=== PATIENT | male | born 1945 | race Caucasian/White ===

== ENCOUNTER 2017-01-28 13:44 | Inpatient (IN) | payer MEDICARE ==
[2017-01-28] MEDS ORDERED: MIRALAX17 GM PO (16:17)
[2017-01-28] MEDS ORDERED: ZOLOFT100 MG PO (16:18)
[2017-01-28] MEDS ORDERED: SEROQUEL50 MG PO (16:18)
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
[2017-01-28 17:57] VITALS: BP 129/88; BMI 23.7
[2017-01-28 22:45] VITALS: BP 130/81
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
[2017-01-29 07:00] LABS: BASOPHILS 0.1 % (0-2); HEMOGLOBIN 16.1 g/dL (13.5-17.5); IMMATURE GRANULOCYTES 0.1 % (0-5); LYMPHOCYTES 18.6 % (15-50); MCH 32.9 pg (26.0-34.0); MCV 94.1 fL (80.0-100.0); MEAN PLATELET VOLUME 9.5 fL (7.4-10.4); MONOCYTES 5.5 % (2-11); NEUTROPHILS 74.7 % (40-80); PLATELET COUNT 154 10x3/uL (130-400); RBC 4.89 10x6/uL (4.20-6.10); RDW 13.6 % (11.5-14.5); WBC 7.3 10x3/uL (4.8-10.8)
[2017-01-29 07:26] LABS: HEMOGLOBIN A1C 5.5 % (4.8-6.0)
[2017-01-29 07:31] LABS: ALBUMIN 3.1 g/dL (3.4-5.0); ALKALINE PHOSPHATASE 41 U/L (46-116); ALT (SGPT) 16 U/L (10-68); BILIRUBIN - TOTAL 0.45 mg/dL (0.2-1.3); CALC OSMOLALITY 283 mosm/kg (275-300); CALCIUM 8.8 mg/dL (8.5-10.1); CARBON DIOXIDE 28.5 mmol/L (21.0-32.0); CHLORIDE - SERUM 107 mmol/L (98-107); CHOL - HDL RATIO 4.9 ratio (2.3-4.9); CHOLESTEROL, TOTAL 224 mg/dL (0-200); CREATININE - SERUM 0.9 mg/dL (0.6-1.3); GLUCOSE 104 mg/dL (74-106); HDL CHOLESTEROL 46 mg/dL (32-96); LDL CHOLESTEROL 143 mg/dL (0-100); LDL-HDL RATIO 3.1 ratio (1.5-3.5); POTASSIUM - SERUM 4.2 mmol/L (3.5-5.1); SODIUM 143 mmol/L (136-145); THYROID STIMULATING HORMONE 3.01 uIU/mL (0.36-3.74); TRIGLYCERIDE 176 mg/dL (30-200); UREA NITROGEN 11 mg/dL (7-18); eGFR NON AFRICAN AMERICAN 88 mL/min (90-120)
[2017-01-29 08:08] VITALS: BMI 23.7
--- NOTE | 2017-01-29 08:42 | NUR ---
PATIENT AWAKENS CONFUSED, HE WALKED OUT OF HIS ROOM WITH A T-SHIRT AND BRIEF ON AND ONE SHOE, STAFF SPOKE SOFTLY AND APPROACHED HIM IN A CALM MANNER AND REDIRECTED HIM TO HIS ROOM AND ASSISTED HIM TO USE THE TOILET AND DRESS HIM, BUT THEN PATIENT TOOK HIS SHOES OFF AGAIN, STAFF ASSISTED HIM WITH PUTTING HIS SHOES BACK ON, PATIENT IS PACING AND EXIT SEEKING, STAFF ATTEMPTING TO EXPLAIN WHY HE IS HERE AND WHERE HE IS, PATIENT IS NOT COMPREHENDING. HE IS ANXIOUS AND PACING, STAFF ATTEMPTING TO GET HIM INVOLVED IN A CONVERSATION AND TRYING ENCOURAGE HIM TO EAT BREAKFAST. PATIENT IS NOT REDIRECTING GETTING MORE ANXIOUS. ATIVAN 0.5 MG IM IN RIGHT HIP GIVEN, WILL MONITOR.
[2017-01-29 08:43] VITALS: BMI 23.6
[2017-01-29 08:57] VITALS: BP 130/83
--- NOTE | 2017-01-29 16:11 | NUR ---
PATIENT GETTING IRRITABLE WITH STAFF BECAUSE HE WANTS TO LEAVE AND STAFF ARE REDIRECTING, BUT HE DOES NOT UNDERSTAND. HE IS NOT LISTENING. NURSE MADE HIM A MILK SHAKE AND THIS HAS HELPED FOR THE SHORT TERM, BUT THEN PATIENT BECAME IRRITABLE, TRYING THE DOORS, PATIENT DOES NOT UNDERSTAND, HE DOES ASK FOR HIS ALSO. ATIVAN 0.5 MG GIVEN, SEE MAR.
--- NOTE | 2017-01-29 17:00 | NUR ---
PATIENT HAS NOT CALMED DOWN AT ALL FROM THE ATIVAN INJECTION, HE IS TRYING TO WALK AND HE IS MORE UNSTEADY, STAFF ARE ATTEMPTING TO GIVE HIM SNACKS AND IT HELPS FOR LONG HE IS EATING, BUT THEN HE WANTS TO EXIT SEEK.
--- NOTE | 2017-01-29 18:25 | NUR ---
PATIENT IS SITTING AT THE TABLE WITH TWO STAFF BY HIS SIDE AND HE HAS A CHAIR ALARM ON FOR ADDITIONAL SECURITY TO PREVENT FALLS.
[2017-01-29 18:40] LABS: APPEARANCE CLEAR (CLEAR); BILIRUBIN NEGATIVE (NEGATIVE); COLOR YELLOW (YELLOW); GLUCOSE NEGATIVE (NEGATIVE); KETONE NEGATIVE (NEGATIVE); NITRITE NEGATIVE (NEGATIVE); PROTEIN NEGATIVE (NEGATIVE); SPECIFIC GRAVITY 1.005 (1.005-1.020); UROBILINOGEN NORMAL (NORMAL)
--- NOTE | 2017-01-29 19:27 | PSY ---
PATIENT NAME:CHAD LAZARO MEDICAL RECORD: [id number] : 45 LOCATION:[facility] ADMISSION DATE: 01/28/17 ACCOUNT: [id number] PSYCHIATRIC EVALUATION DATE OF EVALUATION: 01/29/17 IDENTIFYING DATA: This is the first correction admission for this 71-year-old white male. CHIEF COMPLAINT: "I don't know." HISTORY OF PRESENT ILLNESS: This patient was referred to us by the [facility]. He had become increasingly combative and even assaultive toward staff there and he had been attempting to elope and required very frequent redirection. He has a preexisting diagnosis of Alzheimer dementia and has been followed by a behavioral neurologist, Dr. Hewitt, for some time. The original diagnosis was made in approximately 2005. The patient has shown deterioration since that time. He was eventually placed in the [facility] and referred here because of behavioral problems. Subsequent to admission, the patient did show aggressiveness and extreme confusion. He became belligerent with staff and repeatedly attempted to escape via one of the doors on the unit. He did receive p.r.n. Ativan to control agitation with fair results. PAST MEDICAL HISTORY: Essentially unremarkable. MEDICATIONS: The only routine medication the patient had been taking at the time of admission was Seroquel 50 mg h.s. and MiraLax. FAMILY HISTORY: Noncontributory. SOCIAL HISTORY: The patient is originally from [place]. 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 He is . His lives in [place]. No substance abuse issues as far as can be determined. ALLERGIES: None listed. MENTAL STATUS: On exam, the patient is seated on the sofa in the day room. Initially, he does not acknowledge the presence of the examiner, but within a few minutes, does orient towards him. Speech is extremely terse and there is a distinct paucity of information. Affect during the interview remains blank for the most part. Mood is best described as euthymic. Speech is monotonous in quality. Content of thought is negative for overt psychosis. The patient is oriented only to person. He has global memory impairment. DIAGNOSTIC IMPRESSION: AXIS I: Alzheimer dementia with behavioral disturbance. AXIS II: Deferred. AXIS III: No diagnosis. AXIS IV: Severe. AXIS V: 35. PLAN: 1. The patient will be started on routine doses of Namenda 5 mg b.i.d., Geodon 20 mg b.i.d. for control of agitation. 2. Daily supportive therapy. 3. We will coordinate with referring facility and family regarding aftercare plans. TRANSINT:[id number] Voice Confirmation ID: [id number] DOCUMENT ID: [id number] FANTASMA MURRAY III, MD at 1927 CC: [id number] DICTATION DATE: 01/29/17 1156 CONSTRUCTION CODE ADMINISTRATOR: 01/29/17 1210 ADM IN [facility] [address] [place] [address]
--- NOTE | 2017-01-30 02:32 | NUR ---
B) patient is alert and oriented to self, one on one with staff to prevent falls, patient is unsteady and trying to walk, restless and anxious, I) Administered scheduled, medications, monitored for falls and safety R) Medications compliant, difficult and does not redirect P) Continue plan of care.
[2017-01-30 06:13] LABS: RAPID PLASMA REAGIN Non Reactive (Non Reactive)
[2017-01-30 07:24] LABS: FOLATE (FOLIC ACID) - SERUM 13.9 ng/mL (>3.0)
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
[2017-01-30 11:05] VITALS: BP 142/85
--- NOTE | 2017-01-30 11:40 | NUR ---
B) HAD BEEN ABLE TO REDIRECT PATIENT ALL AM, BUT THIS NURSE LEFT TO GO GET MEDICATIONS AND WHEN I GOT BACK HE WAS SCREAMING, YELLING, DEMANDING TO LEAVE AND DEMANDING TO CALL HIS AND DEMANDING SHE COME PICK HIM UP. DID ATTEMPT TO GET PATIENT A PO ATIVAN, HAD CRUSHED IT UP AND POURED IT DOWN THE SINK. CALLED A FAN WERNER PATIENT IS HITTING THE BACK DOOR WITH HIS FIST AND COMING AT THIS NURSE TO FOLLOW HER OUT OF THE DOOR TO GO GET MEDICATION TO ALLEVIATE HIS ANXIETY. HE KEEPS SCREAMING "THERE IS NOT A DAMN THING WRONG WITH ME" HE SAYS THIS ABOUT A HALF A DOZEN TIMES. METAL CRAFTS TEACHER IS THE ONLY ASSISTANCE WE RECEIVE AND HE TALKS TO THE PATIENT, BUT PATIENT IS NOT CALMING. PATIENT IS AMBULATORY, BUT HE IS UNSTEADY. I) IM GEODON 10 MG GIVEN IN RIGHT HIP. R) PATIENT IS COMPLIANT WITH AM MEDS, BUT HE REFUSED IM INJECTION OR MORE PILLS TO HELP CALM HIM. PATIENT SAT AT THE DINING ROOM TABLE FOR LUNCH AND BIACA GOT HIM A COLA AND HE CALMED FOR A FEW MINUTES. WILL MONITOR. P) CONTINUE POC.
--- NOTE | 2017-01-30 12:30 | NUR ---
PATIENT IS CALM THROUGH LUNCH, BUT THEN HE BEGINS TO RANT AND RAVE AND YELL "I WANT TO GO HOME, DAMN IT, I WANT MY " STAFF SAT BY PATIENT AND SPOKE SOFTLY WITH HIM THAT HE IS IN THE HOSPITAL AND THAT HIS IS AT HOME, BUT SHE CALLED AND SAID SHE LOVES YOU VERY MUCH" THIS CALMED HIM FOR A SHORT TIME. HE BECOMES RESTLESS AND TRIES TO LEAVE AND GETS AGITATED, STAFF GETTING HIM DRINKS AND SNACKS, TRIED TO PUT SOFT CLASSICAL MUSIC ON NEXT TO HIM, BUT THIS HAS NOT HELPED.
--- NOTE | 2017-01-30 14:37 | NUR ---
PATIENT IS NOT SETTLING, HE IS AGITATED, HE IS GIVEN SNACKS AND THEN HE LEAVES CRUMBS ON THE TABLE ABD HE IS UPSET THAT THE TABLE IS MESSY. HE IS FIDGETING WITH THE TABLE, THEN THE NURSE CLEANED THE TABLE OFF, ASSISTED PATIENT TO THE BATHROOM, PATIENT REMAINS ANXIOUS. ATIVAN 0.5 MG PO GIVEN IN A STRAWBERRY SHAKE. WILL MONITOR.
--- NOTE | 2017-01-30 15:10 | NUR ---
SAT BY PATIENT AND EXPLAINED TO HIM THAT I TALKED TO HIS AND THAT SHE SAID FOR ME TO TELL HIM SHE LOVES HIM VERY MUCH. SAT WITH HIM AND TALKED ABOUT WHAT HE DID FOR A LIVING AND WHERE HE HAS TRAVELLED. SAT WITH HIM AND TALKED WITH HIM FOR THIRTY MINUTES AND THIS DID HELP PATIENT TO CALM DOWN AND NOT YELL OR CURSE OR EXIT SEEK.
--- NOTE | 2017-01-30 23:16 | NUR ---
B) Patient is alert and oriented to self, unaware of surroundings, wanting to go home, exitseeking, restless and anxious, I) Administered scheduled medications, PRN Ativan 0.5 mg IM given for anxiety, at 19:49, R) Medication compliant, resting quietly in bed now, P) Continue plan of care.
[2017-01-31 07:00] VITALS: BP 139/86
--- NOTE | 2017-01-31 08:50 | NUR ---
ATIVAN 0.5MG IM GIVEN FOR YELLING AT STAFF AND TRYING TO GET OUT OF RECLINER PER SELF.
--- NOTE | 2017-01-31 09:08 | NUR ---
GEODON 10MG IM GIVEN FOR CUSSING AND YELLING AT STAFF.AGGRESSIVE,HITTING AT STAFF .SECURITY HERE PER NURSE REQUEST.
--- NOTE | 2017-01-31 17:59 | NUR ---
CONFUSED AND DISORIENTED.DEMANDING AND AGGRESSIVE AT TIMES.IS COMPLIANT WITH MEDS.WILL CONTINUE WITH PLAN OF CARE,MONITOR FOR CHANGES AND SAFETY.
--- NOTE | 2017-01-31 20:44 | NUR ---
RECEIVED IN BEDROOM. LAYING IN BED WITH EYES OPEN. REFUSED PM VITALS SIGNS. COOPERATIVE WITH ASSESSMENT. NO SIGNS OF AGGRESSION AT THIS TIME. REDIRECT AND REORIENT NEEDED. ENCOURAGE TO EXPRESS NEEDS. RESTING IN BED EYES CLOSED AT THIS TIME. CONTINUE PLAN OF CARE.
[2017-02-01 06:07] LABS: VITAMIN D 25 HYDROXY 18.9 ng/mL (30.0-100.0)
--- NOTE | 2017-02-01 07:30 | NUR ---
AWAKE AND CONFUSED AT NURSES DESK. HE STARTED YELLING OUT LOUDLY, AND CURSING AT STAFF. COOPERATIVE WITH ASSESSMENT. ADMINISTERED PRESCRIBED MEDICATIONS. COMPLIANT WITH TAKING MEDICATIONS. CONTINUE PLAN OF CARE.
--- NOTE | 2017-02-01 08:01 | NUR ---
PRN ATIVAN 0.5 MG PO GIVEN FOR AGITATION, YELLING AT STAFF, AND BANGING ON NURSES STATION COUNTER.
--- NOTE | 2017-02-01 10:00 | NUR ---
CALLED X 2 THIS AM, GAVE HER AN UPDATE ABOUT HER 'S BEHAVIOR, AND MEDICATIONS REVIEWED FROM THIS WEEK-END AND THIS MORNING TOO. SHE HAS MANY CONCERNS AND WANTS TO TALK WITH DR. MURRAY ABOUT HER .
[2017-02-01 20:09] VITALS: BP 126/74
--- NOTE | 2017-02-01 23:22 | NUR ---
RECEIVED IN BEDROOM. RESTING IN BED WITH EYES CLOSED. RESPONDS TO VOICE. CALM AND COOPERATIVE WITH CARE AND ASSESSMENT. NO SIGNS OF AGGRESSION. ENCOURAGE TO EXPRESS NEEDS. REDIRECT AND REORIENT NEEDED. RESTING IN BED WTIH EYES CLOSED AT THIS TIME. CONTINUE PLAN OF CARE.
--- NOTE | 2017-02-02 08:05 | NUR ---
PRN AT ATIVAN 1 MG IM IN RIGHT GLUTEAL MAURICIO FOR ANXIETY AN AGGITATION.
[2017-02-02 09:24] VITALS: BP 103/69
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
--- NOTE | 2017-02-02 13:12 | NUR ---
NUTRITION F/U CHART REVIEWED. PT TOLERATING REG DIET WITH MIGHTY SHAKES. < 50% INTAKE RECENT MEALS. LAST BM RECORDED 01/29/17. NOTE PT RECEIVING MIRALAX DAILY. WILL CONTINUE TO PROVIDE DIET, SUPPLEMENTS. MONITOR PO INTAKE. RD FOLLOWING
--- NOTE | 2017-02-02 17:15 | NUR ---
UPDATED ON PTS CONDITION AND BEHAVIOR FOR TODAY. EXPLAINED THAT HIS RED EAR WAS DUE TO HIM HITTING SELF ON SIDE OF HEAD AND ON EAR WHEN FRUSTRATED ABOUT SOMETHING OR UNABLE TO FIGURE OUT A WORD. HAD CONCERN ABOUT PT'S LIP BEING SWOLLEN. LIP WAS ASSESSED AND NO SWELLING NOTED. THANKED STAFF FOR THEIR CARE AND FOR TALKING TO HER.
[2017-02-02 20:52] VITALS: BP 142/70
--- NOTE | 2017-02-02 23:43 | NUR ---
RECEIVED IN ROOM. SITTING ON BED. CONFUSED. ATTEMPTS TO STAND WITHOUT ASSISTANCE. ALARM SOUNDING. CALM AND COOPERATIVE WITH CARE AND ASSESSMENT. NO SIGNS OF AGGRESSION. ENCOURAGE TO EXPRESS NEEDS. REDIRECT AND REORIENT NEEDED. RESTING IN BED WTIH EYES CLOSED AT THIS TIME. CONTINUE PLAN OF CARE.
--- NOTE | 2017-02-03 07:43 | NUR ---
GEODON 10 MG IM GIVEN IN LEFT GLUTEAL MAURICIO PRN FOR YELLING, HOOLERING AND AGITATION AT NURSE STATION.
[2017-02-03 09:00] VITALS: BP 126/77
--- NOTE | 2017-02-03 09:33 | NUR ---
LATE ENTRY FROM 02/02 FAMILY VISITATION SW SPOKE WITH PT'S , SALOMON, TO DISCUSS DISEASE PROGRESSION, MEDICATION MANANGEMENT, PT'S BEHAVIORS ON THE UNIT, AND DISCHARGE PLANS. PT WILL BE RETURNING TO THE [facility]. PT'S STATED SHE WAS PLEASED WITH SERVICES AND TAHNKED SW FOR TAKING THE TIME TO EXPLAIN AND ANSWER QUESTIONS. PT'S VERBALIZED UNDERSTANDING OF PT'S CONDITION AND DISCUSSION.
--- NOTE | 2017-02-03 10:34 | PN ---
PATIENT:CHAD LAZARO MEDICAL RECORD: [id number] LOCATION:[facility] ADMISSION DATE: 01/28/17 PROGRESS NOTE DATE OF SERVICE: 02/02/2017 SUBJECTIVE: The patient asked the examiner for a job. OBJECTIVE: The patient has continued to have episodes of agitation. He required p.r.n. medication this morning when he became very restless and intrusive. He is sleeping fairly well. His restlessness appears to interfere with his eating, however. Staff note that the patient is having apparent visual hallucinations. He has been noted to be picking at unseen objects and speaking to unseen people. Extensive conversation was held with the patient's by telephone. Current course of treatment and prognosis were discussed. On exam, mood is somewhat anxious and perplexed. Affect is shallow. Speech shows frequent word finding pauses and is tangential. Content of thought exhibits delusional ideation due to his profound sensorium deficits. Sensorium itself is unchanged. ASSESSMENT: No change in diagnosis. PLAN: 1. Advance Geodon to 40 mg twice a day. 2. Continue all other current medications. 3. Continue supportive therapy. TRANSINT:[id number] Voice Confirmation ID: [id number] DOCUMENT ID: [id number] FANTASMA MURRAY III, MD at 1034 CC: [id number] DICTATION DATE: 02/02/17 1144 INTERNATIONAL MARKETING INTERN: 02/02/17 1202 ADM IN [facility] [address] [place] [address]
--- NOTE | 2017-02-03 10:45 | NUR ---
AWAKE AND ALERT TO SELF ONLY. SITTING AT TABLE IN DAYROOM. CALM AND COOPERATIVE WITH ASSESSMENT. ADMINISTERED PRESCRIBED MEDICATIONS. VSS, MONITOR FOR FALLS. COMPLIANT WITH TAKING MEDICATIONS IN ICE CREAM. CONTINUE WITH PLAN OF CARE.
--- NOTE | 2017-02-03 15:08 | NUR ---
PRN ATIVAN 1 MG IM GIVEN IN RUQ OF BUTTOCK FOR ANXIETY/ AGITATION. HE WAS SLAPPING TABLE AND YELLING OUT LOUDLY.
--- NOTE | 2017-02-03 18:35 | NUR ---
CALLED FOR UPDATE ON PATIENT, UPSET THAT HE SOUNDS DRUGED UP WHEN SHE CALLED TO TALK TO HIM. EXPLAINED THAT HE WAS GIVEN A PRN THIS AFTERNOON OF ATIVAN IM FOR BEHAVIOR PROBLEMS.
[2017-02-03 20:22] VITALS: BP 140/80
--- NOTE | 2017-02-04 02:31 | NUR ---
B) Patient is alert and oriented to name, very confused and restless, constant one on one with staff, I) Administered scheduled medications, PRN Ativan 1 mg IM given at 22:08 for anxiety R) Medication compliant, difficult to redirect, cannot understand instructions, P) Continue plan of care/
[2017-02-04 08:31] VITALS: BP 133/62
--- NOTE | 2017-02-04 09:04 | PN ---
PATIENT:CHAD LAZARO MEDICAL RECORD: [id number] LOCATION:[facility] ADMISSION DATE: 01/28/17 PROGRESS NOTE DATE OF SERVICE: 02/03/2017 SUBJECTIVE: No new complaint noted. OBJECTIVE: The patient continues to have episodic agitation and requires redirection. He did require p.r.n. earlier this morning. On exam, mood is somewhat irritable. Affect is brittle and shallow. Speech is tangential and nonfocused. Content of thought is negative for overt psychosis. Sensorium shows no change. ASSESSMENT: No change in diagnosis. PLAN: 1. Continue current treatment plan. 2. Continue supportive therapy. TRANSINT:[id number] Voice Confirmation ID: [id number] DOCUMENT ID: [id number] FANTASMA MURRAY III, MD at 0904 CC: [id number] DICTATION DATE: 02/03/17 1130 CIGAR BANDER: 02/03/17 1209 ADM IN [place] [id number] [place] [id number]
--- NOTE | 2017-02-04 13:00 | NUR ---
B) PATIENT IS ORIENTED X1, HE IS CALM TODAY, HE HAS NOT SHOWN ANY SIGNS OF AGGRESSION. HE CAN AMBULATE WITH STAFF ASSIST. I) PROVIDE PRESCRIBED MEDS. R) PATIENT IS COMPLIANT WITH MEDS CRUSHED IN ICE CREAM. P) CONT. POC.
--- NOTE | 2017-02-05 02:16 | NUR ---
B) Patient is alert and oriented to self, confused and unaware of surroundings, combative with care at times I) Administered scheduled medications, monitored for falls and for safety, redirected as needed, R) Medication compliant, medications crushed in apple sauce, resting now quietly in bed, P) continue plan of care.
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
--- NOTE | 2017-02-05 07:01 | NUR ---
PATIENT AGITATED AND FIGHTING AND NOT REDIRECTING WITH STAFF, ATIVAN 0.5 MG IM IN HIP, TOLERATED WELL.
--- NOTE | 2017-02-05 07:30 | NUR ---
PATIENT IS CALMER NOW AND HE IS JOKING WITH THE STAFF SAYING "I WANT SOME MARIANNA" PATIENT IS STILL TALKING, BUT NOW HE IS NOT FIGHTING OR KICKING STAFF.
[2017-02-05 10:00] VITALS: BP 118/87
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
--- NOTE | 2017-02-05 16:04 | NUR ---
SW MET WITH PT'S , SALOMON, TO DISCUSS RECENT MEDICATION, DISEASE PROGRESSION, AND DISCHARGE PLANNING. PT'S VERBALIZED UNDERSTANDING OF DISCUSSION.
--- NOTE | 2017-02-06 02:08 | NUR ---
B) Patient alerty and oriented to name, very confused and restless, difficult to redirect, I) Administered scheduled medications, PRN Ativan 1 mg IM given at 21:40 for anxiety, R) Medication compliant, resting quietly now in bed, P) Continue plan of care,
[2017-02-06 08:00] VITALS: BP 127/63
--- NOTE | 2017-02-06 11:00 | NUR ---
ALERT TO NAME ONLY. VERY CONFUSED, CALL FOR SALOMON FREQUENTLY. WHEN ASKED ABOUT HIS CHILDREN, HE SAYS HE HAS 4, BUT NOT SURE ABOUT BOYS OR GIRLS. SITTING AT TABLE IN DAYROOM, QUIETLY. ADMINISTERED MEDICATIONS CRUSHED IN MIGHTY SHAKE. COMPLIANT WITH TAKING MEDS. CONTINUE PLAN OD CARE.
--- NOTE | 2017-02-06 11:00 | PN ---
PATIENT:CHAD LAZARO MEDICAL RECORD: [id number] LOCATION:[facility] ADMISSION DATE: 01/28/17 PROGRESS NOTE DATE OF SERVICE: 02/05/2017 SUBJECTIVE: The patient's case was discussed with staff. He has no new complaint. OBJECTIVE: The patient is in good behavioral control, but very disorganized. He still is not eating very well. He has not been aggressive today. He did sleep well last night, but does not look over sedated at this point. ASSESSMENT: No change in diagnoses. PLAN: Current medicines and therapies have been reviewed and will be maintained. His long-term prognosis is guarded. Brief supportive and educational interventions were made. TRANSINT:[id number] Voice Confirmation ID: [id number] DOCUMENT ID: [id number] IWONA ATKINS MD at 1100 CC: [id number] DICTATION DATE: 02/05/17 1312 INSPECTOR AIR CARRIER: 02/05/17 1336 ADM IN [place] [address] [place] [address]
--- NOTE | 2017-02-07 03:24 | NUR ---
RECEIVED IN PATIENT ROOM. RESTING IN BED WTIH EYES OPEN. CALM AND COOPERATIVE WITH CARE AND ASSESSEMENT. NO SIGNS OF AGGRESSION. VERY CONFUSED. ATTEMPTS TO GET OUT OF BED WITHOUT ASSISTANCE. ALARM SOUNDING. ANXIOUS. YELLING. WAKING UP AND DISTURBING OTHER PATIENTS ON THE UNIT. UNABLE TO REDIRECT. REDIRECT AND REORIENT NEEDED. PRN ATIVAN 1 MG IM GIVEN FOR ANXIETY. RESTING IN BED WTIH EYES CLOSED AT THIS TIME. CONTINUE PLAN OF CARE.
[2017-02-07 08:00] VITALS: BP 127/75
--- NOTE | 2017-02-07 09:30 | NUR ---
PATIENT IS SITTING UP IN CHAIR AND EATING BREAKFAST. PATIENT IS AWAKE, ALERT, AND ORIENTED TO SELF ONLY. PATIENT IS CONFUSED TO PLACE AND TIME. PATIENT TOOK HIS SHEDULED MORNING MEDICATIONS WITHOUT ANY PROBLEMS NOTED. PATIENT CURSES LOUDLY OUT LOUD AT TIMES. WILL MONITOR PATIENT FOR SAFETY AND CONTINUE PLAN OF CARE.
[2017-02-07 19:30] VITALS: BP 110/72
--- NOTE | 2017-02-08 00:28 | NUR ---
RECEIVED IN ROOM. RESTING IN BED WITH EYES OPEN. RESTLESS. VERY CONFUSED. DELUSIONAL. YELLING OUT. ATTEMPTING TO GET OUT OF BED WITHOUT ASSISTANCE. ALARM SOUNDING. UNABLE TO REDIRECT AND REORIENT. PRN ATIVAN 1 MG IM GIVEN FOR INCREASING ANXIETY AND UNSAFE BEHAVIORS. RESTING IN BED WITH EYES CLOSED AT THIS TIME. CONTINUE PLAN OF CARE.
[2017-02-08 08:00] VITALS: BP 126/88
--- NOTE | 2017-02-08 10:19 | PN ---
PATIENT:CHAD LAZARO MEDICAL RECORD: [id number] LOCATION:[facility] ADMISSION DATE: 01/28/17 PROGRESS NOTE DATE OF SERVICE: 02/04/2017 SUBJECTIVE: No new complaint. OBJECTIVE: The patient remains extremely confused. He does require redirection from time to time. Agitation is reduced. He did require p.r.n. Ativan last night at 2200, but so far this morning has done fairly well. The patient is alert, but not agitated. On exam, mood is more or less euthymic. Affect is very constricted. Speech is quite terse. Content of thought is negative for clear cut psychosis. Sensorium unchanged. ASSESSMENT: No change in diagnosis. PLAN: 1. Continue monitoring for potential drowsiness related side effects of medication. 2. Continue current treatment plan and supportive therapy. TRANSINT:[id number] Voice Confirmation ID: [id number] DOCUMENT ID: [id number] FANTASMA MURRAY III, MD at 1019 CC: [id number] DICTATION DATE: 02/04/17 1009 STAVE SAW OPERATOR: 02/04/17 1151 ADM IN [facility] [address] [place] [address]
--- NOTE | 2017-02-08 13:37 | PN ---
PATIENT:CHAD LAZARO MEDICAL RECORD: [id number] LOCATION:[facility] ADMISSION DATE: 01/28/17 PROGRESS NOTE DATE OF SERVICE: 02/06/2017 SUBJECTIVE: The patient's case was discussed with staff. He has no new complaint. OBJECTIVE: The patient is in good behavioral control. He did require some p.r.n. Ativan last night. He is clearly impaired severely. His long-term prognosis is guarded. PLAN: Brief supportive and educational interventions were made. TRANSINT:[id number] Voice Confirmation ID: [id number] DOCUMENT ID: [id number] IWONA ATKINS MD at 1337 CC: [id number] DICTATION DATE: 02/06/17 1132 BOLOGNA MAKER: 02/06/17 1158 ADM IN [facility] [address] [place] [address]
--- NOTE | 2017-02-08 14:14 | NUR ---
ORIENTED TO PERSON ONLY. PT WAS CALM AND COOPERATIVE DURING ASSESSMENT BUT SHORTLY AFTER BECAME VERY AGITATED. YELLING AND CURSING AT OTHER PTS. HE WAS BANGING ON THE TABLE AND TRYING TO HIT OTHER PTS. STAFF INTERVENED AND HE CALMED DOWN. PT IS A 1:1 TO KEEP HIM FROM ATTACKING OTHER PTS. MEDICATIONS GIVEN ORDERED. FALL PRECAUTIONS MAINTAINED. CHANDAN ALARM IN PLACE AND AUDIBLE. WILL CONTINUE TO MONITOR AND CONTINUE WITH PLAN OF CARE. PT IS A FEEDER AT TIMES, AND STAFF GIVE MULTIPLE PROMPTS TO EAT.
[2017-02-08 21:18] VITALS: BP 126/80
--- NOTE | 2017-02-09 00:26 | NUR ---
RECEIVED IN PATIENT ROOM. RESTING IN BED WITH EYES OPEN. CALM AND COOPERATIVE WITH CARE AND ASSESSMENT. NO SIGNS OF AGGRESSION. ENCOURAGE TO EXPRESS NEEDS. REDIRECT AND REORIENT NEEDED. RESTING IN BED WTIH EYES CLOSED AT THIS TIME. CONTINUE PLAN OF CARE.
--- NOTE | 2017-02-09 05:37 | PN ---
PATIENT:CHAD LAZARO MEDICAL RECORD: [id number] LOCATION:[facility] ADMISSION DATE: 01/28/17 PROGRESS NOTE DATE OF SERVICE: 02/08/2017 SUBJECTIVE: No coherent complaint. OBJECTIVE: The patient has had some episodic agitation. He did require p.r.n. last night. He is not exhibiting excessive sedation. He is eating fairly well. However, does require frequent redirection because of intrusiveness. On exam, mood is euthymic. Affect is very blank. Speech is somewhat tangential. Content of thought is negative for overt psychosis. Sensorium shows no change. ASSESSMENT: No change in diagnosis. PLAN: 1. We will continue all current medications from now -- consider the addition of low dose Depakote in the future if the patient's behavior continues to be aggressive. 2. Continue supportive therapy. TRANSINT:[id number] Voice Confirmation ID: [id number] DOCUMENT ID: [id number] FANTASMA MURRAY III, MD at 0537 CC: [id number] DICTATION DATE: 02/08/17 1137 LABOR RELATIONS CONSULTANT: 02/08/17 1228 ADM IN [facility] [address] [place] [address]
--- NOTE | 2017-02-09 13:00 | NUR ---
Received this am, alert and oriented to name and place, calm and cooperative with care. Encourage patient to express needs. Redirect and reorient as need. Encourage group participation. Compliant with medications, has smiled and laughed with staff this am, pleasant with no aggression. Continue to monitor for any change in behavior, continue with plan of care.
--- NOTE | 2017-02-09 15:00 | NUR ---
Patient sitting in chair, yelling out Princess Sánchez. Redirected that Princess was not present.
--- NOTE | 2017-02-09 15:30 | NUR ---
Patient spouse has arrived, patient immediately started smiling and crying. Spouse concerned and questioned to why patient was crying, explained to her that patient has been yelling her name and did not start crying until he say her coming in to see him, she then questioned to if patient was still on his antidepression, medications reviewed and instructed. Verbalized concern regarding patient admission weight stating patinet weight 2-3 weeks ago was 155.8, patient consumed 100 percent of breakfast and 20 percent at lunch, patient weighed now at 151.6 pounds.
[2017-02-09 20:39] VITALS: BP 137/85
--- NOTE | 2017-02-10 03:06 | NUR ---
RECEIVED IN BEDROOM. VERY CONFUSED. YELLING OUT ATTEMPTING TO STAND WITHOUT ASSIST. INCREASING ANXIETY. PRN ATIVAN 1 MG IM GIVEN FOR ANXIETY. TRANSFERE TO HALLWAY IN RECLINER FOR ONE ON ONE CARE. CONTINUES TO YELL OUT. SEXUALLY IN APPROPRIATE WITH FEMALE STAFF. ATTEMPTED TO HIT AND KICK STAFF. VERBALLY ABUSIVE. PRN GEODON 10 MG IM GIVEN FOR INCREASING ANXIETY. CONTINUE ONE ON ONE CARE. RESTING WITH EYES CLOSED AT THIS TIME. CONTINUE PLAN OF CARE
--- NOTE | 2017-02-10 09:57 | NUR ---
NO AGGRESSION THIS MORNING. PT DID GET 2 PRNS ON AS400 PROGRAMMER ANALYST. COOPERATIVE WITH CARE. PT CONTINUES TO BE CONFUSED AND REQUIRES FREQUENT REDIRECTION WITH NO EVIDENCE OF RETAINING. MEDICATIONS GIVEN ORDERED. FALL PRECAUTIONS MAINTAINED. WILL CONTINUE TO MONITOR AND CONTINUE WITH PLAN OF CARE
--- NOTE | 2017-02-10 10:43 | PN ---
PATIENT:CHAD LAZARO MEDICAL RECORD: [id number] LOCATION:[facility] ADMISSION DATE: 01/28/17 PROGRESS NOTE DATE OF SERVICE: 02/09/2017 SUBJECTIVE: No new complaint. OBJECTIVE: Another telephone call was held with the patient's again to update her on current treatment plan and to give a thorough explanation of virtually all treatment decisions, particularly in regards to medication, also prognosis and possible discharge date were discussed with the patient's in great detail. The patient himself is doing much better. He fed himself this morning, he is smiling quite a bit and even joking occasionally with staff. On exam, mood is pleasant and euthymic. Affect is bland. Speech is somewhat terse. Content of thought is negative for overt psychosis. Sensorium is unchanged. ASSESSMENT: No change in diagnosis. PLAN: 1. Maintain all current medication. 2. If patient continues to maintain good behavioral improvement, we will consider discharge within a few days. TRANSINT:[id number] Voice Confirmation ID: [id number] DOCUMENT ID: [id number] FANTASMA MURRAY III, MD at 1043 CC: [id number] DICTATION DATE: 02/09/17 1236 MANUAL ARTS TEACHER: 02/09/17 1258 ADM IN [place] [facility] [id number] [place] [address]
[2017-02-10 11:09] VITALS: BP 118/51
--- NOTE | 2017-02-10 12:11 | NUR ---
LATE NOTE FROM 02/09 FAMILY VISITATION TIME. SW SPOKE WITH PT'S ABOUT PT HAVING A GOOD DAY AND BEING IN GOOD BEHAVIORAL CONTROL. PT'S , SALOMON, CONTINUED TO QUESTION SW AND RN ABOUT PT'S MEDICATION REGIMEN AND WONDERED WHY PT WAS NOT ON ZOLOFT. THIS WAS AFTER SHE HAD A PHONE CALL WITH THE MORNING OF 02/09/17 TO DISCUSS MEDICATION REGIMEN, PROGNOISIS, AND TREATMENT. PT'S WAS TOLD PT HAS TO HAVE THREE CONSISTANT DAYS OF GOOD BEHAVIORAL CONTROL BEFORE DISCHARGE. SHE ASKED FOR PT TO BE WEIGHED STATING PT LOOKS LIKE HE IS LOSING WEIGHT. STAFF GOT THE SCALE AND WEIGHED PT AND HE GAINED WEIGHT SINCE LAST WEIGH IN. SHE STATED SHE DOESN'T BELIEVE THE SCALES ARE ACCURATE. SHE STATED SHE IS WORRIED ABOUT HIS CONDITION. SW EDUCATED ON DISEASE PROGRESSION AND TREATMENT ON THE UNIT. PT'S VERBALIZED UNDERSTANDING OF CONVERSATION.
--- NOTE | 2017-02-10 18:30 | NUR ---
Alert, confused, sitting at table in dayroom. No s/s pain or distress.
[2017-02-10 19:38] VITALS: BP 126/69
--- NOTE | 2017-02-11 01:51 | NUR ---
RECEIVED IN HALLWAY SITTING IN RECLINER OUTSIDE OF NURSES STATION. PATIENT IS VERY ANXIOUS. ATTEMPTING TO STAND WITHOUT ASSIST. CHANDAN ALARM SOUNDING. BEDCOMING PHYSICALLY ABUSIVE WITH REDIRECTION. UNABLE TO REDIRECT AND REORIENT. PRN ATIVAN 1 MG IM GIVEN FOR SEVERE ANXIETY AND GEODON 10 MG GIVEN FOR SEVERE ANXIETY / PSYCHOTIC BEHAVIOR. TRANSFERRED TO BED AFTER PATIENT CALMED. RESTING IN BED WTIH EYES CLOSED AT THIS TIME. CONTINUE PLAN OF CARE.
--- NOTE | 2017-02-11 05:44 | PN ---
PATIENT:CHAD LAZARO MEDICAL RECORD: [id number] LOCATION:[facility] ADMISSION DATE: 01/28/17 PROGRESS NOTE DATE OF SERVICE: 02/10/2017 SUBJECTIVE: The patient states angrily "where is my ?" OBJECTIVE: The patient has again become agitated. He required p.r.n. twice last night because of the agitation. He has also begun to show sexually inappropriate behavior. He did sleep 6-1/2 hours. On exam, mood is irritable. Affect is brittle and somewhat threatening. Speech is terse. Content of thought exhibits nonspecific paranoid ideation. Sensorium shows no change. ASSESSMENT: No change in diagnosis. PLAN: 1. Maintain current medication. 2. Continue close observation and supportive therapy. TRANSINT:[id number] Voice Confirmation ID: [id number] DOCUMENT ID: [id number] FANTASMA MURRAY III, MD at 0544 CC: [id number] DICTATION DATE: 02/10/17 1138 SHANK INSPECTOR: 02/10/17 1157 ADM IN [facility] [address] [place] [address]
[2017-02-11 08:30] VITALS: BP 107/73
--- NOTE | 2017-02-11 14:24 | NUR ---
PT'S , SALOMON, CALLED HORTENCIA TO DISCUSS PT'S CARE AND THE FEAR THAT THE [facility] IS NOT GOING TO ACCEPT PT BACK. HORTENCIA ASKED IF THE [facility] STATED THEY WOULD NOT ACCEPT PT BACK AND SHE STATED "YES". SHE REPORTED TELLING THE [facility] THAT PT DOES NOT WALK BY HIMSELF OR EAT BY HIMSELF ANYMORE. SHE ALSO STATED PT IS TOO SEDATED ON HIS MEDICATIONS TO FUNCITION ON MEMORY CARE. HORTENCIA ASKED WHY WOULD YOU REPORT THOSE THINGS WHEN WE HAVE SHOWED YOU PT CAN WALK, REPORTED HE EATS BY HIMSELF WITH MINIIMAL ASSIST, AND IS FUNCTIONING DURING THE DAY BY BEING ALERT AND ORIENTED TO PERSON? SHE STATED SHE FELT NONE OF THOSE THINGS ARE ACCURATE. HORTENCIA REPLIED WE HAVE EDUCATED YOU ON MEDICATION REGIMEN AND WHY HE IS NOT ON CERTAIN MEDICATIONS, HAS MADE MULTIPLE PHONE CALLS AT YOUR REQUEST EXPLAINING MEDICATION REGIMEN, AND EVERYDAY YOU CALL AND GET A REPORT FROM STAFF ON HOW HE IS DOING WITH FEEDING HIMSELF, BEHAVIORAL, AND WALKING. SHE THEN STARTED CRYING AND REPORTED SHE IS SO WORRIED IT WONT WORK. SW REDIRECTED AND COMFORTED EXPLAINING DISEASE PROGRESSION, MEDICATION REGIMEN, AND THE IMPORTANCE OF SELF CARE. HORTENCIA EMPATHIZED WITH HER AND STATED THERE IS NO SOLUTION TO TAKE AWAY DEMENTIA AND WE ARE WORKING A TEAM TO STABILIZE HIS BEHAVIORS CLOSE TO HIS BASELINE POSSIBLE. SHE STATED SHE WAS GRATEFUL FOR SERVICES AND CARE HER HAS RECIEVED. HORTENCIA DISCUSSED THE IMPORTANCE OF SELF CARE.
--- NOTE | 2017-02-11 15:00 | NUR ---
B) PATIENT HAS BEEN MORE CALM AND QUIET TODAY, HE HAS BEEN MORE SLEEPY. PATIENT YELLED FOR SALOMON A COUPLE OF TIMES, BUT HE REDIRECTED EASILY WHEN AN EXPLANATION WAS GIVEN THAT SHE WILL VISIT LATER TODAY. I) PROVIDE PRESCRIBED MEDS. R) PATIENT IS COMPLIANT WITH MEDS AND UNIT MILIEU. P) CONTINUE POC.
--- NOTE | 2017-02-11 16:21 | NUR ---
SW CALLED TO CHECK ON OF PT AFTER SHE STATED SHE WOULD COME TO VISITATION. SW LEFT VM STATING IF SHE NEEDED TO DISCUSS ANY FURTHER INFORMATION WITH STAFF FEEL FREE TO CALL.
--- NOTE | 2017-02-12 03:27 | NUR ---
B) Patient is alert and oriented to self, confused and unaware of where he is at, restless and agitated at times, I) Administered scheduled medications, PRN Ativan 1 mg IM at 19:44 for anxiety, monitored for safety R) Medication compliant, resting quietly in bed P) Continue plan of care.
[2017-02-12 08:30] VITALS: BP 118/78
--- NOTE | 2017-02-12 09:02 | NUR ---
SW CONTACTED PT'S , SALOMON, TO GIVE MORNING UPDATE. PT WALKED TO THE SINK AND BRUSHED HIS TEETH WITH TECH DIRECTING HIM. PT WALKED WITH SW TO DINING AREA AND STARTED FEEDING HIMSELF HIS [place] TOAST. SALOMON REPORTED SHE FELT SCOLDED BY YESTERDAY'S CONVERSATION AND DID NOT COME TO VISITATION DUE TO THOSE FEELINGS. SW APOLOGIZED FOR ANY MISCOMMUNICATION AND STATED SHE WAS MERELY EDUCATING ON DISEASE PROGRESSION, SELF CARE, AND PT'S CURRENT STATE. SHE THEN STATED SHE UNDERSTOOD AND SHE JUST TOOK IT TO HEART BECAUSE SHE FELT SHE WAS DOING THE WRONG THINGS. SW AGAIN STATED SHE WAS NOT DOING THINGS WRONG AND THE PATIENT IS DEMONSTRATING DISEASE PROGRESSION. SW ALSO STATED SITTING IN PT'S LAP CAUSED HIM TO START WANTING STAFF TO SIT IN HIS LAP AND LED TO HIM BEING SEXUALLY INAPPROPRIATE WITH STAFF. SW EXPLAINED SHE WAS TRYING TO ASSIST IN DE-ESCALATING PT'S BEHAVIORS. SHE VERBALIZED UNDERSTANDING OF CONVERSATION AND STATED SHE FEELS BETTER AFTER THIS MORNINGS UPDATE.
--- NOTE | 2017-02-12 10:01 | PN ---
PATIENT:CHAD LAZARO MEDICAL RECORD: [id number] LOCATION:[facility] ADMISSION DATE: 01/28/17 PROGRESS NOTE DATE OF SERVICE: 02/11/2017 SUBJECTIVE: No new complaint. OBJECTIVE: On exam today, the patient is initially euthymic, but becomes tearful. He is passively cooperative. He is alert. The patient has been exhibiting late afternoon and nighttime agitation. He did require p.r.n. medication because of threatening behavior last night. Staff has remained in daily contact with the patient's to answer her questions, sometimes several times per day. On exam, the patient's mood is initially euthymic, but becomes dysphoric. Affect is brittle. Speech is rather terse. Content of thought is unchanged. Sensorium is unchanged. ASSESSMENT: No change in diagnosis. PLAN: 1. Change Geodon to 20 mg in the morning and 40 mg in the evening. 2. Add Depakote Sprinkles 500 mg h.s. 3. Valproic acid blood level on the . 4. Continue other medications and supportive therapy. TRANSINT:[id number] Voice Confirmation ID: [id number] DOCUMENT ID: [id number] FANTASMA MURRAY III, MD at 1001 CC: [id number] DICTATION DATE: 02/11/17 1210 CIVIL STRUCTURAL DESIGNER: 02/11/17 1221 ADM IN [place] [facility] [id number] [place] [address]
--- NOTE | 2017-02-12 10:05 | NUR ---
B) PATIENT IS AWAKE AND ALERT, HE IS ABLE TO WALK WITH STAFF ASSIST, HE CAN FEED HIMSELF WITH STAFF FIRST ASSISTING HIM WITH SET UP. I) PROVIDE PRESCRIBED MEDS. R) PATIENT IS COMPLIANT WITH MEDS AND UNIT MILIEU. P) CONTINUE POC.
[2017-02-12 19:30] VITALS: BP 119/77
--- NOTE | 2017-02-13 03:29 | NUR ---
B) patient is alert and oriented to his name, very confused and unaware of surroundings, restless at times, I) Administeered scheduled medications, monitored for safety, redirected as needed. R) Medication compliant, resting quietly now, P) Continue plan of care.
--- NOTE | 2017-02-13 05:45 | PN ---
PATIENT:CHAD LAZARO MEDICAL RECORD: [id number] LOCATION:[facility] ADMISSION DATE: 01/28/17 PROGRESS NOTE DATE OF SERVICE: 02/12/2017 SUBJECTIVE: The patient states that he does not have any money. OBJECTIVE: The patient is calm and pleasant this morning. He did require Ativan p.r.n. last night, but responded quite well to this. Overall, he is showing improvement. On exam today, mood is euthymic. Affect is bland. Speech is terse. Content of thought is negative for overt psychosis. Sensorium is unchanged. ASSESSMENT: No change in diagnosis. PLAN: 1. Continue current treatment plan. 2. Continue supportive therapy. TRANSINT:[id number] Voice Confirmation ID: [id number] DOCUMENT ID: [id number] FANTASMA MURRAY III, MD at 0545 CC: [id number] DICTATION DATE: 02/12/17 1156 POULTRY PROCESSOR: 02/12/17 1205 ADM IN [facility] [address] [place] [address]
[2017-02-13 08:00] VITALS: BP 115/92
--- NOTE | 2017-02-13 10:30 | NUR ---
B) PATIENT IS AWAKE AND ALERT, HE IS SOMEWHAT REDIRECTABLE TODAY, HE HAS BEEN WALKING TODAY ALITTLE MORE. HE IS NOT SEDATED, HE HAS YELLED OUT A LITTLE THIS AM, CALLING "SALOMON" HE IS REDIRECTED TO LET HIM KNOW HIS IS HOME. HE IS CALMER TODAY. I) PROVIDE PRESCRIBED MEDS. R) PATIENT IS COMPLIANT WITH MEDS AND HE HAS NOT SHOWN AGGRESSION TODAY. P) CONTINUE POC.
[2017-02-13 19:30] VITALS: BP 163/78
--- NOTE | 2017-02-14 04:34 | NUR ---
B) Partient is alert and oriented to name, very confused and restless, difficult to redirect, I) Administered scheduled medications, PRN Ativan 1 mg IM given for anxiety at 1855, monitored for safety R) Medication compliant, resting quietly in bed P) Continue plan of care/
[2017-02-14 08:00] VITALS: BP 125/73
--- NOTE | 2017-02-14 13:00 | NUR ---
PATIENT IS TALKING TO UNSEEN PEOPLE. "HEY MEN, WHERE ARE YOU GOING? ARE YOU THROUGH?" HE ALSO PICS AT THE AIR.
[2017-02-14 19:30] VITALS: BP 138/78
--- NOTE | 2017-02-14 20:12 | NUR ---
B) AWAKE AND ORIENTED TO NAME ONLY, VERY CONFUSED AND RESTLESS. HE IS SLOW TO MOVE TODAY. HE IS DIFFICULT TO REDIRECT, DOES NOT PROCESS WHAT TO DO. I) ADMINISTERED PRESCRIBED MEDICATIONS, VSS, ASSESSMENT COMPLETE. R) COMPLIANT TO TAKE MEDICATIOMS CRUSHED IN APPESAUCE. NO AGGRESSION NOTED. P) CONTINUE PLAN OF CARE.
--- NOTE | 2017-02-14 21:43 | NUR ---
RECEIVED IN DAYROOM AREA. SITTING IN CHAIR. CONFUSED. CALM AND COOPERATIVE WITH CARE AND ASSESSMENTS. NO SIGNS OF AGGRESSION. REDIRECT AND REORIENT AND REORIENT NEEDED. ENCOURAGE TO EXPRESS NEEDS. CONTINUES TO RESTING QUIETLY CHAIR. CONTINUE PLAN OF CARE
[2017-02-15 09:41] VITALS: BP 142/89
--- NOTE | 2017-02-15 10:12 | PN ---
PATIENT:CHAD LAZARO MEDICAL RECORD: [id number] LOCATION:[facility] ADMISSION DATE: 01/28/17 PROGRESS NOTE DATE OF SERVICE: 02/14/2017 SUBJECTIVE: No new complaint. OBJECTIVE: No new reports of agitation from staff. The patient appears to be tolerating medications quite well. On exam, mood more or less euthymic. Affect is very shallow. Speech is terse. Content of thought is negative for overt psychosis. Sensorium shows no change. ASSESSMENT: No change in diagnosis. PLAN: 1. Maintain current medications. 2. Continue supportive therapy. TRANSINT:[id number] Voice Confirmation ID: [id number] DOCUMENT ID: [id number] FANTASMA MURRAY III, MD at 1012 CC: [id number] DICTATION DATE: 02/14/17 163 RESIDENTIAL APPRAISER: 02/14/17 2217 ADM IN [facility] [address] [place] [address]
--- NOTE | 2017-02-15 13:53 | NUR ---
Nutrition Follow Up: Pt is eating 92% meal avg on a regular diet. He is receiving Mighty Shakes TID. +BM 02/13/17. Meds and labs reviewed. Rec continue current diet. RD following.
--- NOTE | 2017-02-15 21:01 | PN ---
PATIENT:CHAD LAZARO MEDICAL RECORD: [id number] LOCATION:[facility] ADMISSION DATE: 01/28/17 PROGRESS NOTE DATE OF SERVICE: 02/15/2017 SUBJECTIVE: No new complaint. OBJECTIVE: The patient remains quite confused. He has difficulty interacting with the examiner simply due to lack of comprehension of the examiners statements and questions. The patient is easily distractible and becomes agitated when there is more noise on the unit. However, overall he is doing better and has not been combative. On exam, mood is for the most part euthymic. Affect is very shallow. Speech is repetitive. Content of thought is negative for overt psychosis. Sensorium is unchanged. ASSESSMENT: No change in diagnosis. PLAN: 1. Continue current treatment plan. 2. Continue supportive therapy. TRANSINT:[id number] Voice Confirmation ID: [id number] DOCUMENT ID: [id number] FANTASMA MURRAY III, MD at 2101 CC: [id number] DICTATION DATE: 02/15/17 1051 ENGINEERING PRODUCTION WORKER: 02/15/17 1214 ADM IN [facility] [address] [place] [address]
--- NOTE | 2017-02-15 22:23 | NUR ---
RECEIVED IN BEDROOM. VERY CONFUSED. ALARM SOUNDING. GETTING OUT OF BED WITHOUT ASSIST. REDIRECT AND REORIENT. ANXIETY INCREASING. BEGAN TO SCREAM LOUDLY THAT HE WANTED OUT. UNABLE TO CALM. PRN ATIVAN 1 MG IM GIVEN FOR SEVERE ANXIETY. COOPERATIVE WITH ASSESSMENT. RESISTANT TO CARE T TIMES BUT NOT AGGRESSIVE. RESTING IN BED EYES CLOSED AT THIS TIME. YELLING OUT AT TIMES. CONTINUES TO ATTEMPT TO GET OUT OF BED WITHOUT ASSIST. CONTINUE PLAN OF CARE
[2017-02-16 06:57] VITALS: BP 151/89
[2017-02-16 08:30] VITALS: BP 151/89
--- NOTE | 2017-02-16 13:00 | NUR ---
AWAKE AND ALERT, VERY CONFUSED AND RESTLESS, DIFFICULT TO REDIRECT. NO AGGRESSION NOTED. CONTINUE PLAN OF CARE.
--- NOTE | 2017-02-16 22:52 | NUR ---
RECEIVED IN HALLWAY. RESTING IN A WHEELCHAIR WITH EYES OPEN. LOUD AT TIMES. CONFUSED. CALM AND COOPERATIVE WITH CARE AND ASSESSMENTS. NO SIGNS OF AGGRESSION. REDIRECT AND REORIENT NEEDED. RESTING IN BED WITH EYES CLOSED. CONTINUE PLAN OF CARE
--- NOTE | 2017-02-16 23:42 | NUR ---
PRN Ativan 1 mg IM given for anxiety at 19:27.
--- NOTE | 2017-02-17 10:26 | PN ---
PATIENT:CHAD LAZARO MEDICAL RECORD: [id number] LOCATION:[facility] ADMISSION DATE: 01/28/17 PROGRESS NOTE DATE OF SERVICE: 02/16/2017 SUBJECTIVE: No new complaint. OBJECTIVE: The patient again has become agitated at night. He did require p.r.n. twice last night to control his agitation. However, he is walking well and feeding himself a great deal of the time. On exam, mood is slightly irritable. Affect is overall constricted. Speech is terse. Content of thought is negative for overt psychosis. Sensorium is unchanged. ASSESSMENT: No change in diagnosis. PLAN: 1. We will change Geodon to 40 mg h.s. only. 2. Change Depakote sprinkles to 500 mg twice a day. 3. Valproic acid blood level in the morning. 4. Continue other medications and supportive therapy. TRANSINT:[id number] Voice Confirmation ID: [id number] DOCUMENT ID: [id number] FANTASMA MURRAY III, MD at 1026 CC: [id number] DICTATION DATE: 02/16/17 1153 FLEXIBLE MACHINING SYSTEM MACHINIST: 02/16/17 1213 ADM IN [facility] [address] [place] [address]
[2017-02-17 10:36] VITALS: BP 131/82
[2017-02-17] MEDS ORDERED: NORVASC2.5 MG PO (11:40)
[2017-02-17] MEDS ORDERED: DEPAKOTE SPRIN125 MG PO (11:40)
[2017-02-17] MEDS ORDERED: GEODON40 MG PO (11:41)
[2017-02-17] MEDS ORDERED: NAMENDA5 MG PO (11:41)
[2017-02-17] MEDS ORDERED: VITAMIN D5000 UNIT PO (11:41)
--- NOTE | 2017-02-17 13:19 | NUR ---
HORTENCIA SPOKE WITH , SALOMON, REGARDING DISCHARGE PLANNING. HORTENCIA REPORTED THE [facility] WILL TIMBER FRAMER PT AT 1230 TOMORROW. SALOMON STATED SHE NEEDED MEDICATIONS SENT TO [facility] IN [place]. SHE VERBALIZED UNDERSTANDING OF DISCHARGE PLANS AND DISCUSSION.
--- NOTE | 2017-02-17 13:28 | NUR ---
B) PATIENT IS CALM TODAY, HE HAS NOT SHOWN ANY AGGRESSION TODAY, HE HAS YELLED OUT A COUPLE TIMES, BUT NOT YELLING FOR SALOMON. HE DOES LET STAFF KNOW WHEN HE NEEDS TO GO TO THE BATHROOM. I) PROVIDE PRESCRIBED MEDS. R) PATIENT IS COMPLIANT WITH MEDS AND HE IS AMBULATING SHORT DISTANCES WITH STAFF ASSIST. P) CONTINUE POC.
--- NOTE | 2017-02-18 00:26 | NUR ---
B) Patient is alert and oriented to self, very confused and disoriented, restless at times, combative at times with care, I) Administered scheduled medications, monitored for safety R) Medication compliant, yells out at times and calls out for people, P) Continue plan of care.
--- NOTE | 2017-02-18 04:01 | PN ---
PATIENT:CHAD LAZARO MEDICAL RECORD: [id number] LOCATION:[facility] ADMISSION DATE: 01/28/17 PROGRESS NOTE DATE OF SERVICE: 02/17/2017 SUBJECTIVE: No new complaint. OBJECTIVE: The patient did require Ativan to help with sleep, but aside from that, did very well over the last 24 hours. No new problems noted. The patient does have a stable valproic acid blood level at 65. On exam, mood is euthymic. Affect is bland. Speech is terse. Content of thought is unchanged. Sensorium unchanged. ASSESSMENT: No change in diagnosis. PLAN: 1. Maintain current medications. 2. Anticipate discharge tomorrow. TRANSINT:[id number] Voice Confirmation ID: [id number] DOCUMENT ID: [id number] FANTASMA MURRAY III, MD at 0401 CC: [id number] DICTATION DATE: 02/17/17 1145 REGIONAL TRAINING MANAGER: 02/17/17 1222 ADM IN [place] [id number] [place] [id number]
[2017-02-18 07:30] VITALS: BP 130/86
--- NOTE | 2017-02-18 08:06 | NUR ---
B) PATIENT IS CALM, HE HAS NOT SHOWN ANY AGGRESSION, HE CAN AMBULATE WITH STAFF ASSISTANCE, HE DOES NOT FOLLOW DIRECTION WELL. HE IS GETTING D/C TODAY, WILL FAX D/C ORDERS AND MED LIST. I) PROVIDE PRESCRIBED MEDS. R) PATIENT IS COMPLIANT WITH MEDS AND UNIT MILIEU. P) CONTINUE D/C PLAN
--- NOTE | 2017-02-18 09:10 | NUR ---
CALLED MEDICATIONS TO [facility].
--- NOTE | 2017-02-18 09:21 | NUR ---
CALLED REPORT TO [facility], REFAXED D/C ORDER AND MEDS TO NEW NUMBER [phone].
--- NOTE | 2017-02-18 13:00 | NUR ---
ENGINEER AUTOMATED EQUIPMENT HERE FROM THE [facility] AND ALL BELONGINGS PACKED AND READY TO GO. PATIENT IS NOW D/C'D FROM [facility]
--- NOTE | 2017-02-18 21:05 | DS ---
PATIENT:CHAD LAZARO :45 MEDICAL RECORD: [id number] DISCHARGE SUMMARY ADMISSION DATE: 01/28/17 DISCHARGE DATE: 02/18/17 DATE OF ADMISSION: 01/28/2017 DATE OF DISCHARGE: 02/18/2017 HISTORY OF PRESENT ILLNESS: First Group Home admission for this 71-year-old white male. The patient was referred by the [facility]. He had a previous diagnosis of Alzheimer dementia. The patient had originally been diagnosed about 10-11 years ago. The patient had been exhibiting worsening behavioral problems including aggressiveness, confusion, and combativeness. For further details, please see previously dictated history. COURSE IN THE HOSPITAL: The patient was seen in consultation by Dr. Lovell. Dr. Lovell noted the presence of hypertension, but essentially no other medical comorbidities. The patient continued to have significant behavioral problems throughout much of the hospitalization. Typically, this involved aggressiveness, attempts to elope from the unit and agitation. The patient was managed with combination of benzodiazepines, Geodon and divalproex. He was started on Namenda 10 mg twice a day for his dementing symptoms. Eventually, the dosage of Geodon was stabilized at 40 mg at bedtime, Depakote Sprinkle was stabilized at 500 mg twice a day. He did achieve a good therapeutic blood level of valproic acid as of 02/17/2017 at 62.5. The staff as well as myself maintained close contact with the patient's answering her questions and keeping her updated on his progress and his prognosis. By the end of the hospitalization, the patient had achieved good benefits from the current treatment plan. In particular, he was sleeping much better and was no longer requiring p.r.n. medication for control of agitation and discharged in stable condition. FINAL DIAGNOSES: AXIS I: Alzheimer dementia with behavioral disturbance - improved. AXIS II: No diagnosis. AXIS III: Hypertension. AXIS IV: Moderate. AXIS V: 40. PLAN: 1. The patient is discharged on current medication. 2. Diet and activities as tolerated. 3. Follow up through primary care physician assigned in the group home. TRANSINT:[id number] Voice Confirmation ID: [id number] DOCUMENT ID: [id number] DISCHARGE SUMMARY REPORT [id number] CHAD LAZARO TREVOR MEZA, FANTASMA Lopez MD at 2104 CC: [id number] DICTATION DATE: 02/18/17 1300 BUSINESS EDITOR: 02/18/17 1357 DIS IN 02/18/17 [facility] [address] [id number]
== END 2017-02-18 13:05 | disposition home or self-care (01) | DRG 57 ==
LOC: D.PSYCH 13:44
PROVIDERS: ADMIT Psychiatry & Neurology Psychiatry
DX: G30.9 Alzheimer's disease, unspecified (principal); F02.81 Dementia in other diseases classified elsewhere, unspecified severity, with behavioral disturbance; I10 Essential (primary) hypertension; K59.00 Constipation, unspecified; Z91.81 History of falling; Z74.09 Other reduced mobility; E55.9 Vitamin D deficiency, unspecified

== ENCOUNTER 2017-05-21 09:38 | Inpatient (IN) | payer MEDICARE ==
--- NOTE | ~2017-05-21 | PN ---
PATIENT:CHAD LAZARO MEDICAL RECORD: [id number] LOCATION:[facility] ADMISSION DATE: 05/21/17 PROGRESS NOTE DATE OF SERVICE: 05/24/2017 SUBJECTIVE: No new complaint. OBJECTIVE: The patient has exhibited agitation. From time to time, he did require p.r.n. of Haldol and Ativan yesterday according to staff. This morning, the patient is sleepy. He did receive his dose of Geodon last night. On exam, mood is somewhat irritable. Affect is reserved. Speech is terse. Content of thought appears to focus only on somatic concerns. Sensorium is unchanged. ASSESSMENT: No change in diagnosis. PLAN: 1. We will discontinue Geodon and Zoloft for now. 2. We will reduce Depakote sprinkles to 375 mg b.i.d. (blood level from this morning was approximately 60). 3. Continue supportive care. TRANSINT:[id number] Voice Confirmation ID: [id number] DOCUMENT ID: [id number] FANTASMA MURRAY III, MD at 0632 CC: [id number] DICTATION DATE: 05/24/17931 ARCHIVAL STUDIES PROFESSOR: 05/24/17 1156 ADM IN [address] [place] [address]
--- NOTE | ~2017-05-21 | PN ---
PATIENT:CHAD LAZARO MEDICAL RECORD: [id number] LOCATION:[facility] ADMISSION DATE: 05/21/17 PROGRESS NOTE DATE OF SERVICE: 05/28/2017 SUBJECTIVE: The patient's case was discussed with staff. He has no new complaint. OBJECTIVE: The patient is severely impaired cognitively. He is, however, eating a little better. ASSESSMENT: No change in diagnoses. PLAN: I anticipate the patient can be transitioned out of the hospital soon if this level of improvement is maintained. His long-term prognosis is guarded. TRANSINT:[id number] Voice Confirmation ID: [id number] DOCUMENT ID: [id number] IWONA ATKINS MD at 0847 CC: [id number] DICTATION DATE: 05/28/17 1315 STORE ADMINISTRATIVE ASSISTANT: 05/28/17 1402 ADM IN [facility] [address] [place] [address]
--- NOTE | ~2017-05-21 | PN ---
PATIENT:CHAD LAZARO MEDICAL RECORD: [id number] LOCATION:[facility] ADMISSION DATE: 05/21/17 PROGRESS NOTE DATE OF SERVICE: 05/25/2017 SUBJECTIVE: The patient does not offer a new complaint. OBJECTIVE: The patient is doing considerably better this morning. He did take his medications willingly. He has eaten well. He ate breakfast quite readily this morning and was pleasant with staff. OBJECTIVE: An attempt was made to contact the patient's at area code [phone]. The did not answer, but an extensive voicemail was left. In the voicemail, I explained to the that the patient was indeed doing quite better and that Geodon and Zoloft had been discontinued. I further noted that Depakote has been reduced to 375 mg twice a day. I explained that the patient may very well maintain a fairly good blood level on the reduced dose and that this would reduce the risk of untoward side effects. I also emphasized in the voicemail that routine neuroleptic medications were now being discontinued, but that the p.r.n. medications (haloperidol and Ativan) would be employed if the patient exhibited a behavior which was potentially dangerous to other people or to himself. I finally noted to the that I will be taking medical leave effective immediately and that care for the patient will be transferred to my colleague, Dr. Juan Manuel Rogers. On exam today, the patient is indeed pleasant. He orients well to the examiner, but is not very conversant. Mood is for the most part euthymic. Affect is rather shallow. Speech tends to be terse. Content of thought is negative for overt psychosis. Sensorium is unchanged. ASSESSMENT: No change in diagnosis. PLAN: 1. Continue medications as currently ordered. 2. Continue supportive therapy. 3. Will be signing off this case until further notice. TRANSINT:[id number] Voice Confirmation ID: [id number] DOCUMENT ID: [id number] FANTASMA MURRAY III, MD at 0657 CC: [id number] DICTATION DATE: 05/25/17 1134 ELECTRONIC MASKING SYSTEM OPERATOR: 05/25/17 1156 ADM IN [id number] [place] [address]
--- NOTE | ~2017-05-21 | PN ---
PATIENT:CHAD LAZARO MEDICAL RECORD: [id number] LOCATION:[facility] ADMISSION DATE: 05/21/17 PROGRESS NOTE DATE OF SERVICE: 05/26/2017 SUBJECTIVE: The patient's case was discussed with staff. He has no new complaint. OBJECTIVE: The patient is in good behavioral control with limited insight about his condition. He has not been aggressive. ASSESSMENT: No change in diagnoses. PLAN: The patient will be maintained on current medicines, which have been reviewed. His long-term prognosis is guarded. I anticipate he could be transitioned out of the hospital soon. TRANSINT:[id number] Voice Confirmation ID: [id number] DOCUMENT ID: [id number] IWONA ATKINS MD at 1024 CC: [id number] DICTATION DATE: 05/26/17 1459 GRAB OPERATOR: 05/26/17 1523 ADM IN [id number] [place] [address]
--- NOTE | ~2017-05-21 | PN ---
PATIENT:CHAD LAZARO MEDICAL RECORD: [id number] LOCATION:[facility] ADMISSION DATE: 05/21/17 PROGRESS NOTE DATE OF SERVICE: 05/27/2017 SUBJECTIVE: The patient's case was discussed with staff. He has no new complaint. OBJECTIVE: The patient is severely impaired cognitively, but he has not been aggressive. His oral intake yesterday was zero. Obviously, this is incompatible with life and I am going to prescribe for him Megace. Regardless of the other issues that are being addressed, if he would not eat or drink then he is not going to survive. I think his long-term prognosis is quite seriously questioned. I am going to prescribe the Megace and I have spoken with the staff about at least trying to get him to take as many fluids as possible. I am not sure about his advanced directives, I will look at that. Given his advanced dementia, I would recommend against a feeding tube and it would appear that comfort care or hospice measures would be in order for this man who is profoundly demented. TRANSINT:[id number] Voice Confirmation ID: [id number] DOCUMENT ID: [id number] IWONA ATKINS MD at 1024 CC: [id number] DICTATION DATE: 05/27/17 1035 BIOSTATISTICS TEACHER: 05/27/17 1043 ADM IN [id number] [place] [address]
--- NOTE | ~2017-05-21 | PN ---
PATIENT:CHAD LAZARO MEDICAL RECORD: [id number] LOCATION:[facility] ADMISSION DATE: 05/21/17 PROGRESS NOTE DATE OF SERVICE: 05/29/2017 SUBJECTIVE: The patient's case was discussed with staff. He has no new complaint. OBJECTIVE: The patient denies intent to harm himself or others. He is awake and oriented to person only. ASSESSMENT: No change in diagnoses. PLAN: The patient will be transitioned out of the hospital soon. His long-term prognosis is guarded. TRANSINT:[id number] Voice Confirmation ID: [id number] DOCUMENT ID: [id number] IWONA ATKINS MD at 1117 CC: [id number] DICTATION DATE: 05/29/17 09 RN OCCUPATIONAL HEALTH: 05/29/17 0920 ADM IN [facility] [address] [place] [address]
--- NOTE | ~2017-05-21 | PN ---
PATIENT:CHAD LAZARO MEDICAL RECORD: [id number] LOCATION:[facility] ADMISSION DATE: 05/21/17 PROGRESS NOTE DATE OF SERVICE: 05/31/2017 SUBJECTIVE: The patient's case was discussed with staff. He has no new complaint. OBJECTIVE: The patient is not oriented at all. He does not know his name, but when it is called, he looks in my direction. He is not displaying any disruptive behaviors. He was, however, agitated this morning when they tried to get him out of bed, he did a great deal of yelling. I have reviewed his medicines and do not think this is a medication issue. I anticipate he can be transitioned out of the hospital tomorrow unless there are some serious aggressive behaviors. I think that everything that can reasonably be done for this man who has an advanced end-stage dementia has been done. He is not eating despite our best efforts to get him to do so. I think he is in need of hospice and comfort care measures. His dementia is end stage. TRANSINT:[id number] Voice Confirmation ID: [id number] DOCUMENT ID: [id number] IWONA ATKINS MD at 0849 CC: [id number] DICTATION DATE: 05/31/17 1434 GASOLINE PLANT OPERATOR: 05/31/17 1928 ADM IN [address] [place] [address]
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
[~2017-05-21 09:38] MED LIST: DEPAKOTE SPRIN125 MG PO; GEODON40 MG PO; MIRALAX17 GM PO; NAMENDA5 MG PO; NORVASC2.5 MG PO; SEROQUEL50 MG PO; VITAMIN D5000 UNIT PO; ZOLOFT100 MG PO
[2017-05-21 10:39] LABS: BASOPHILS 0.5 % (0-2); EOSINOPHILS 1.4 % (0-7); HEMATOCRIT 41.8 % (42.0-54.0); HEMOGLOBIN 14.5 g/dL (13.5-17.5); IMMATURE GRANULOCYTES 0.2 % (0-5); LYMPHOCYTES 20.4 % (15-50); MCH 32.6 pg (26.0-34.0); MCHC 34.7 g/dL (31.0-37.0); MCV 93.9 fL (80.0-100.0); MEAN PLATELET VOLUME 9.7 fL (7.4-10.4); MONOCYTES 5.8 % (2-11); NEUTROPHILS 71.7 % (40-80); RBC 4.45 10x6/uL (4.20-6.10); RDW 12.4 % (11.5-14.5); WBC 4.2 10x3/uL (4.8-10.8)
[2017-05-21 10:49] LABS: PLATELET COUNT 201 10x3/uL (130-400)
[2017-05-21 11:05] LABS: ALBUMIN 2.8 g/dL (3.4-5.0); ALKALINE PHOSPHATASE 110 U/L (46-116); ALT (SGPT) 23 U/L (10-68); BILIRUBIN - TOTAL 0.38 mg/dL (0.2-1.3); CALC OSMOLALITY 283 mosm/kg (275-300); CALCIUM 8.8 mg/dL (8.5-10.1); CARBON DIOXIDE 29.2 mmol/L (21.0-32.0); CHLORIDE - SERUM 106 mmol/L (98-107); CREATININE - SERUM 0.8 mg/dL (0.6-1.3); GLUCOSE 119 mg/dL (74-106); POTASSIUM - SERUM 4.7 mmol/L (3.5-5.1); PROTEIN - SERUM 5.8 g/dL (6.4-8.2); SODIUM 142 mmol/L (136-145); UREA NITROGEN 12 mg/dL (7-18); eGFR NON AFRICAN AMERICAN > 90 mL/min (90-120)
[2017-05-21 11:36] LABS: APPEARANCE CLOUDY (CLEAR); BILIRUBIN NEGATIVE (NEGATIVE); COLOR YELLOW (YELLOW); GLUCOSE NEGATIVE (NEGATIVE); KETONE NEGATIVE (NEGATIVE); NITRITE NEGATIVE (NEGATIVE); PROTEIN NEGATIVE (NEGATIVE); UROBILINOGEN NORMAL (NORMAL)
[2017-05-21 11:42] LABS: UDS - AMPHET NEGATIVE QUAL (NEGATIVE); UDS - BARB NEGATIVE QUAL (NEGATIVE); UDS - BENZO NEGATIVE QUAL (NEGATIVE); UDS - COCAINE NEGATIVE QUAL (NEGATIVE); UDS - OPIATE NEGATIVE QUAL (NEGATIVE); UDS - PCP NEGATIVE QUAL (NEGATIVE); UDS - THC NEGATIVE QUAL (NEGATIVE)
[2017-05-21 17:31] VITALS: BP 123/67
[2017-05-21] MEDS ORDERED: VIC-FORTE CAPSUL1 MG PO (17:50)
[2017-05-21] MEDS ORDERED: ZOLOFT50 MG PO (17:51)
[2017-05-21] MEDS ORDERED: BAYER CHEWABLE81 MG PO (17:52)
[2017-05-21] MEDS ORDERED: CALCIUM 500 +1 EAC3 PO (17:52)
[2017-05-21] MEDS ORDERED: GABAPENTIN100 MG PO (17:53)
[2017-05-21] MEDS ORDERED: OXYCODONE H5 MG/5 ML PO (17:56)
[2017-05-21] MEDS ORDERED: SENNA PLUS TA1 UDTAB PO (17:57)
[2017-05-21] MEDS ORDERED: ULTRAM50 MG PO (17:58)
[2017-05-21 19:20] LABS: HEMOGLOBIN A1C 5.4 % (4.8-6.0)
[2017-05-21 19:29] LABS: CHOL - HDL RATIO 5.7 ratio (2.3-4.9); LDL-HDL RATIO 3.1 ratio (1.5-3.5); THYROID STIMULATING HORMONE 2.07 uIU/mL (0.36-3.74)
[2017-05-21 19:44] VITALS: BP 123/67
[2017-05-22 10:17] VITALS: BP 138/72
[2017-05-22 19:27] VITALS: BP 155/83
[2017-05-23 07:00] VITALS: BP 116/90
[2017-05-23 21:00] VITALS: BP 140/70
[2017-05-24 07:00] VITALS: BP 140/76
[2017-05-24 11:13] LABS: FOLATE (FOLIC ACID) - SERUM 12.2 ng/mL (>3.0)
[2017-05-24 13:11] VITALS: Wt 64.6 kg
[2017-05-24 20:56] VITALS: BP 152/85
[2017-05-25 10:02] VITALS: BP 147/93
[2017-05-26 10:09] VITALS: BP 166/69
[2017-05-26 19:59] VITALS: BP 148/77
[2017-05-27 10:22] VITALS: BP 148/78
[2017-05-27 19:31] VITALS: BP 148/67
[2017-05-28 09:22] VITALS: BP 135/62
[2017-05-28] MEDS ORDERED: PREPARATION H O57 GM RC (19:36)
[2017-05-28 19:47] VITALS: BP 121/74
[2017-05-29 09:12] VITALS: BP 137/62
[2017-05-30 07:46] VITALS: BP 133/73
[2017-05-30 20:01] VITALS: BP 140/70
[2017-05-31 07:00] VITALS: BP 136/84
[2017-05-31 19:44] VITALS: BP 137/72
[2017-06-01 08:57] VITALS: BP 128/81
[2017-06-01] MEDS ORDERED: MEGACE40 MG PO (10:34)
[2017-06-01] MEDS ORDERED: NYSTATIN ORAL SU5 ML PO (10:34)
[2017-06-01] MEDS ORDERED: DEPAKOTE SPRIN125 MG PO (10:36)
== END 2017-06-01 16:00 | disposition home health service (06) | DRG 57 ==
LOC: D.ER 09:38 → D.PSYCH 15:50
PROVIDERS: Family Medicine; Psychiatry & Neurology Psychiatry
DX: G30.9 Alzheimer's disease, unspecified (principal); F02.81 Dementia in other diseases classified elsewhere, unspecified severity, with behavioral disturbance; I10 Essential (primary) hypertension; Z74.09 Other reduced mobility; M19.90 Unspecified osteoarthritis, unspecified site; R63.0 Anorexia; K59.00 Constipation, unspecified; E55.9 Vitamin D deficiency, unspecified; S72.002D Fracture of unspecified part of neck of left femur, subsequent encounter for closed fracture with routine healing; W19.XXXD Unspecified fall, subsequent encounter; Z91.81 History of falling